=== PATIENT | female | born 1960 | race Caucasian/White ===

== ENCOUNTER 2020-07-04 09:12 | Emergency (ER) | payer OTHER, SELFPAY ==
--- NOTE | ~2020-07-04 | US_ITS ---
EXAMINATION: US VENOUS ULTRASOUND WITH DOPPLER LOWER EXTREMITY, RIGHT CLINICAL INFORMATION: Edema COMPARISON: 05/15/2009 TECHNIQUE: Ultrasound of the deep veins is performed from the hip to the calf with compression sonography and color and pulse Doppler assessment. Spectral analysis with color-flow imaging is performed. FINDINGS: There is normal venous compression and respiratory variation and augmented flow. The visualized common femoral vein, superficial femoral vein, profunda femoral vein, popliteal vein, and the trifurcation region shows no evidence of deep venous thrombosis. There is no significant popliteal fossa cyst. If the patient's symptoms persist, followup ultrasound in 5 days 7 days might be of value to exclude proximal propagation from a non-visualized calf vein. US/US venous duplex LE RT IMPRESSION: No DVT demonstrated in the right lower extremity.
[2020-07-04 09:18] VITALS: BP 143/86; PULSE 70; RESP 18; TEMP 36.6; O2SAT 99; BMI 22.9
--- NOTE | 2020-07-04 10:10 | ED.GENADULT ---
HPI - General Adult General Chief complaint: Extremity Problem Stated complaint: leg pain Time Seen by Provider: 07/04/20 09:36 Source: patient Mode of arrival: ambulatory Limitations: no limitations History of Present Illness HPI narrative: Patient presents to ED for right lower extremity pain and swelling. Patient believes her right leg was swollen and then improved to but now has pain her thigh down to calf. Patient denies any recent trauma to right lower extremity. Patient denies any redness of right lower extremity. Patient denies any fever, chills, chest pain, or shortness of breath. Patient denies any blunt trauma to any problem body. Patient came to be evaluated due to her receiving J&J vaccine earlier in the month. Related Data Allergies Allergy/AdvReac Type Severity Reaction Status Date / Time No Known Allergies Allergy Verified 07/04/20 09:21 Review of Systems Review of Systems: Yes all other systems are reviewed and are negative Constitutional: Constitutional: Reports as per HPI and Reports no additional constitutional complaints Eyes: Eyes: Reports as per HPI and Reports no additional eye complaints ENT: Reports system reviewed and no additional complaints, except as documented and Reports as per HPI Cardiovascular: Cardiovascular: Reports as per HPI, Reports no additional cardiovascular complaints and Denies dyspnea Respiratory: Respiratory: Reports as per HPI, Reports no additional respiratory complaints, Denies cough and Denies dyspnea Gastrointestinal: Gastrointestinal: Reports as per HPI and Reports no additional gastrointestinal complaints Genitourinary: Genitourinary: Reports no additional female genitourinary complaints and Reports as per HPI Musculoskeletal: Musculoskeletal: Reports no additional musculoskeletal complaints and Reports as per HPI Comments: Right lower extremity swelling or leg pain. Neurologic: Reports system reviewed and no additional complaints, except as documented and Reports as per HPI Psychiatric: Psychiatric: Reports no additional psychiatric complaints and Reports as per HPI [facility], [facility] Past Medical History Medical History (Updated 07/04/20 @ 10:50 by CANDACE Blanton) Breast CA Social History Social History Smoked in Last 30 Days: No Use of substances other than those prescribed or required for medical reasons: No Advance Directives: No Advance Directives Information Provided: No Physical Exam Vital Signs: Vital Signs: Last Vital Signs Temp 97.9 F 07/04/20 09:18 Pulse 70 07/04/20 09:18 Resp 18 07/04/20 09:18 BP 143/86 H 07/04/20 09:18 Pulse Ox 99 07/04/20 09:18 Body Mass Index 22.9 Const: General: cooperative, healthy appearing, comfortable, no acute distress, well developed, alert, awake and Physically active Orientation/consciousness: patient oriented x3 HENMT: Head: Yes normal to inspection, Yes No palpable skull fracture present, Yes normocephalic, Yes atraumatic and Yes abrasion Eyes: General: appearance normal, both eyes and all related structures Neck: Neck: Yes normal visual inspection, Yes full ROM, Yes no lymphadenopathy, Yes no meningeal signs, Yes trachea midline, Yes supple and No tender Chest: Chest palpation & inspection: normal inspection of the chest and normal palpation of entire chest wall Resp: Effort & Inspection: normal respiratory effort and able to speak in complete sentences Auscultation: clear to auscultation bilaterally Cardio: Jugular venous distension: no JVD Heart sounds: S1 normal heart sound present and S2 normal heart sound present GI: Inspection: Yes normal to inspection and No abdominal wall ecchymosis Palpation (GI): Soft to palpation, not firm, nontender, no guarding and not rigid : General: No CVA tenderness and Yes no CVA tenderness Back/Spine/Pelvis: Back: no CVA tenderness, No CVA tenderness and No back tenderness Skin: General skin exam: no rashes or lesions noted and elasticity normal Neuro: General: patient oriented x3, no meningeal signs and CN's II-XI intact bilaterally Cranial nerves: Yes CN's II-XII intact bilaterally Extrem: Other: Right lower extremity: Negative for any swelling, redness, hotness, bluish discoloration, ecchymosis, wounds, post discharge, or foul odor. Positive for mild calf pain. Vascular/Neuro/motor exam intact. Left lower Exremity: Negative for any swelling, redness, hotness, blue discoloration, ecchymosis, wounds, pus discharge, or foul odor. Negative for calf pain. Vascular and, neuro/motor exam intact Psych: Appearance: grossly normal, well kempt and not disheveled Course Course Course Narrative: Physical exam does not indicate cellulitis or obvious DVT. Physical exam does not indicate CHF. Due to patient stating slight right mild calf pain with recent J&J vaccine received she will be sent for ultrasound to rule out blood clot. Reevaluation(s) Reevaluation #1: Right lower extremity negative for ultrasound. No need for x-ray. Negative for any trauma. Negative for and ecchymosis or signs of trauma. History physical exam does not indicate cellulitis or CHF. Medical Decision Making MDM Narrative Medical decision making narrative: Leg pain Discharge Plan Discharge Clinical Impression: Acute leg pain Patient Disposition: Home, Self-Care Instructions: Leg Pain (ED) Additional Instructions: Return to the ED immediately for redness, warmth, pain edema, swelling, red streaks, calf pain, chest pain, shortness of breath, bluish discoloration of toes, coolness of leg, fever, chills, or any other concerning symptoms. The ultrasound came back negative for DVT. Please follow-up with your PCP Interventions: ED Discharge Assessment Last Done: 07/04/20 11:05 Discharge Date/Time: 07/04/20 11:06 Print Language: Occitan
== END 2020-07-04 11:06 | disposition home or self-care (01) ==
PROVIDERS: Emergency Provider Emergency Medicine; PCP Internal Medicine
DX: M79.661 Pain in right lower leg (principal); R60.0 Localized edema
CPT/HCPCS: 93971; 99283